=== PATIENT | male | born 1990 | race Caucasian/White ===

== ENCOUNTER 2019-01-29 09:42 | Emergency (ER) | payer BC ==
[2019-01-29] MEDS ORDERED: Clindamycin 600 MG/D5W BAG(*) 600 MG/50 ML BAG IV ONE (10:45)
[2019-01-29 11:04] LABS: ABS Eosinophils 0.1 10^3/ul (0-0.6); ABS Lymphocytes 1.3 10^3/ul (1.0-4.8); ABS Monocytes 0.7 10^3/ul (0-0.8); ABS Neutrophils 7.7 10^3/ul (1.5-7.7); Eosinophil % 0.8 %; Hematocrit 42 % (42-52); Hemoglobin 14.8 g/dL (14.0-18.0); Lymphocyte % 12.9 %; Mean Corpuscular HGB Conc 35 g/dL (31-36); Mean Corpuscular Hemoglobin 32 pg (27-31); Mean Corpuscular Volume 90 fL (80-94); Mean Platelet Volume 10.3 fL (7.4-10.4); Platelet Count 154 10^3/uL (150-450); Red Blood Count 4.68 10^6 /uL (4.18-5.48); Red Cell Distribution Width 13 % (10-15); White Blood Count 9.8 10^3/uL (3.5-10.8)
[2019-01-29] MEDS ORDERED: Clindamycin 600 MG IVPREMIX(* 600 MG/50 ML SDV IV ONE (12:00)
[2019-01-29 12:14] VITALS: BP 125/73
--- NOTE | 2019-01-29 12:15 | ED ---
Skin Complaint - HPI Summary HPI Summary: This patient is a 29-year-old otherwise healthy male presenting to the ED with a right lower leg abscess. He was placed on Bactrim yesterday at the urgent care. He states the area continues to drain and was concerned for this so he came into the ED. Denies history of MRSA. He denies fevers, sweats, chills. He does endorse erythema to the foot and to the right lower extremity, without streaking or involvement of the knee. - History of Current Complaint Chief Complaint: EDRashSkinAbscess Time Seen by Provider: 01/29/19 09:58 Stated Complaint: ABCESS ON ANKLE PER PATIENT Hx Obtained From: Patient Onset/Duration: Started Hours Ago Skin Exposure Onset/Duration: Hours Ago Timing: Constant Onset Severity: Moderate Current Severity: Moderate Pain Intensity: 4 Pain Scale Used: 0-10 Numeric Skin Location: Other: - right lower extremity Character: Pain, Redness, Raised, Painful Aggravating Symptom(s): Nothing Alleviating Symptom(s): Nothing Associated Signs & Symptoms: Negative - Allergy/Home Medications Allergies/Adverse Reactions: Allergies Allergy/AdvReac Type Severity Reaction Status Date / Time No Known Allergies Allergy Verified 01/29/19 09:57 PMH/Surg Hx/FS Hx/Imm Hx Previously Healthy: Yes Endocrine/Hematology History: Denies: Hx Diabetes, Hx Anemia GI History: Denies: Hx Jaundice - Immunization History Hx Pertussis Vaccination: No Immunizations Up to Date: Yes Infectious Disease History: No Infectious Disease History: Denies: Traveled Outside the [place] in Last 30 Days - Social History Occupation: Employed Full-time Lives: With Family Alcohol Use: 5-6 drinks per week Hx Substance Use: No Substance Use Type: Reports: None Hx Tobacco Use: No Smoking Status (MU): Never Smoked Tobacco Amount Used/How Often: pot daily Review of Systems Negative: Fever, Chills, Fatigue, Skin Diaphoresis Negative: Palpitations, Chest Pain Negative: Shortness Of Breath, Cough Genitourinary: Negative Positive: no symptoms reported, see HPI Negative: Arthralgia, Myalgia Positive: Other - right lateral lower extremity abscess All Other Systems Reviewed And Are Negative: Yes Physical Exam Triage Information Reviewed: Yes Vital Signs On Initial Exam: Initial Vitals Temp Pulse Resp BP Pulse Ox 98.2 F 78 16 126/77 98 01/29/19 09:55 01/29/19 09:55 01/29/19 09:55 01/29/19 09:55 01/29/19 09:55 Vital Signs Reviewed: Yes Appearance: Positive: Well-Appearing, Well-Nourished Skin: Positive: Warm, Skin Color Reflects Adequate Perfusion, Other - right lateral lower extremity abscess Head/Face: Positive: Normal Head/Face Inspection Eyes: Positive: EOMI, Conjunctiva Clear Neck: Positive: Supple, No Lymphadenopathy Respiratory/Lung Sounds: Positive: Clear to Auscultation, Breath Sounds Present Cardiovascular: Positive: RRR, Pulses are Symmetrical in both Upper and Lower Extremities Musculoskeletal: Positive: Normal, Strength/ROM Intact Procedures - Incision and Drainage 1 Site: R lower extremity Anesthesia: Topical Instrument(s): Scalpel Packing: Other - no packing applied Diagnostics - Vital Signs Vital Signs Temp Pulse Resp BP Pulse Ox 01/29/19 11:03 63 121/70 100 01/29/19 11:00 61 100 01/29/19 10:33 64 120/71 01/29/19 10:04 70 100 01/29/19 10:03 68 137/73 100 01/29/19 09:55 98.2 F 78 16 126/77 98 - Laboratory Lab Results: Lab Results 01/29/19 01/29/19 Range/Units 10:57 10:57 WBC 9.8 (3.5-10.8) 10^3/uL RBC 4.68 (4.18-5.48) 10^6 /uL Hgb 14.8 (14.0-18.0) g/dL Hct 42 (42-52) % MCV 90 (80-94) fL MCH 32 H (27-31) pg MCHC 35 (31-36) g/dL RDW 13 (10-15) % Plt Count 154 (150-450) 10^3/uL MPV 10.3 (7.4-10.4) fL Neut % (Auto) 78.6 % Lymph % (Auto) 12.9 % Centre % (Auto) 7.2 % Eos % (Auto) 0.8 % Baso % (Auto) 0.5 % Absolute Neuts (auto) 7.7 (1.5-7.7) 10^3/ul Absolute Lymphs (auto) 1.3 (1.0-4.8) 10^3/ul Absolute Monos (auto) 0.7 (0-0.8) 10^3/ul Absolute Eos (auto) 0.1 (0-0.6) 10^3/ul Absolute Basos (auto) 0.0 (0-0.2) 10^3/ul Absolute Nucleated RBC 0.0 10^3/ul Nucleated RBC % 0.0 C-Reactive Protein 64.71 H (<8.01) mg/L Result Diagrams: 01/29/19 10:57 Lab Statement: Any lab studies that have been ordered have been reviewed, and results considered in the medical decision making process. Course/Dx - Course Course Of Treatment: During the course of treatment, the patient is evaluated for right lower extremity lateral abscess which is measured to be approximately 2 cm in width with surrounding erythema extending into the foot with slight swelling. He was diagnosed with abscess several days ago, but now is having cellulitis to the foot. He continues to deny any fevers, sweats, chills. He states he feels otherwise healthy and remains ambulatory. He has never had anything like this before and denies history of MRSA. The area is spontaneously draining, however small amount at a time. As there appears to be a loculated fluid collection directly underlying, the wound was prepped in sterile fashion and a 0.5 cm incision was made to the most superior portion of the abscess. Purulent drainage was expressed. This was not packed as the opening was small. Gauze wrapped and Tegaderm applied. He will remain on his Bactrim. We'll call with any differing results from the wound culture. - Differential Diagnoses - Skin Complaint Differential Diagnoses: Abscess - Diagnoses Provider Diagnoses: Abscess Discharge - Sign-Out/Discharge Documenting (check all that apply): Patient Departure Patient Received Moderate/Deep Sedation with Procedure: No - Discharge Plan Condition: Stable Disposition: HOME Patient Education Materials: Abscess (ED) Referrals: Colten Treadwell NP [Primary Care Provider] - Additional Instructions: warm compresses to the area keep the area covered as long as it continues to drain Continue on your abx as prescribed if you develop any worsening streaking of red up the leg, develop fevers or do not improve within the next 48 hours, return to the ED - Billing Disposition and Condition Condition: STABLE Disposition: Home
== END 2019-01-29 12:13 | disposition home or self-care (01) ==
LOC: ED 09:42
DX: L02.415 Cutaneous abscess of right lower limb (principal)
CPT/HCPCS: 10060; 36415; 85025; 86140; 87070; 87077; 87186; 87205; 87640; 87641; 96365; 99282